=== PATIENT | male | born 1940 | race Caucasian/White ===

== ENCOUNTER 2023-10-17 23:39 | Inpatient (IN) | payer OTHER, SELFPAY ==
[2023-10-17 20:37] VITALS: BMI 24.4
[2023-10-17 20:49] LABS: % Basophils 0.5 % (0-2); % Eosinophils 1.8 % (0-6); % Immature Granulocytes 0.3 % (0-0.5); % Lymphocytes 36.1 % (20.5-51.1); % Monocytes 10.6 % (1.7-9.3); % Neutrophils 50.7 % (42.2-75.2); Absolute Eosinophils 0.1 10^3/uL (0-0.7); Absolute Lymphocytes 2.7 10^3/uL (1.2-3.4); Absolute Monocytes 0.8 10^3/uL (0.1-0.6); Absolute Neutrophils 3.8 10^3/uL (1.4-6.5); Hematocrit 48.5 % (39.0-52.0); Hemoglobin 15.9 g/dL (13.0-18.0); Mean Corp Hgb Conc. 32.8 g/dL (33.0-37.0); Mean Corpuscular Hgb 29.2 pg (27.0-31.0); Mean Corpuscular Volume 89.2 fL (80.0-94.0); Mean Platelet Volume 9.3 fL (7.4-10.4); Nucleated Red Blood Cells % 0 % (-); Platelet Count 140 10^3/uL (130-400); Red Blood Cell Count 5.44 10^6/uL (4.70-6.10); Red Cell Dist. Width 13.8 % (11.5-14.5); White Blood Cell Count 7.4 10^3/uL (4.8-10.8)
[2023-10-17 21:06] VITALS: BP 86/42
[2023-10-17 21:15] LABS: ALT (SGPT) 21 U/L (0-50); AST (SGOT) 31 U/L (17-59); Albumin 4.3 g/dl (3.5-5.0); Alkaline Phosphatase 79 U/L (38-126); Blood Urea Nitrogen 30 mg/dl (9-20); Calcium 9.1 mg/dl (8.4-10.2); Carbon Dioxide 31 mmol/L (22-30); Chloride 100 mmol/L (98-107); Estimated Creatinine Clearance 50 ml/min; Glucose 117 mg/dl (70-99); Potassium 3.9 mmol/L (3.5-5.1); Sodium 134 mmol/L (135-145); Total Bilirubin 0.7 mg/dl (0.2-1.3); Total Protein 7.1 g/dl (6.3-8.2); eGFR 55.53
[2023-10-17 21:25] LABS: Troponin I 0.014 ng/ml
[2023-10-17] MEDS: CARDIZEM 2.5 MG IV (21:39)
[2023-10-17] MEDS: NSS 1000 IV (21:41)
[2023-10-17] MEDS: CARDIZEM 125 IV (21:41)
[2023-10-17 22:34] VITALS: BP 142/119
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
[2023-10-17 22:54] VITALS: BP 96/40
[2023-10-17 23:00] VITALS: BP 84/63
[2023-10-17 23:44] VITALS: BP 84/69
[2023-10-18] VITALS (39 sets, daily range): BP systolic 74–114; BP diastolic 50–72; PULSE 67–69; BMI 24.4; BMI 24.7
[2023-10-18] MEDS: CORDARONE 103 MG IV (00:51)
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
[2023-10-18] MEDS: CORDARONE 518 MG IV (01:12)
[2023-10-18] MEDS: NSS 500 IV (01:21)
--- NOTE | 2023-10-18 02:00 | PTCARENOTE ---
Received patient from ED. Patient able to transfer from stretcher to bed. Patient awake, alert and oriented. No complaints of pain. Patient on amio gtt and IVF's at this time. Patient hooked up to monitor, vital signs obtained. Patients HR in 80's,
vpacing. Underlying rhythm looks like Afib but now controlled. BP stable 80/50s. No complaints of lightheadedness or dizziness. No pain. Patient on RA, sats 98%, lungs clear. + bowel sounds, urinal at bedside. Went over plan of care. No questions at
this time. oriented to room, call wagner within reach, maintained safety.
[2023-10-18] MEDS: KCL 20 MEQ PO (02:32)
[2023-10-18 02:55] LABS: Magnesium 2.2 mg/dl (1.6-2.3)
[2023-10-18 04:30] LABS: % Basophils 0.6 % (0-2); % Eosinophils 2.2 % (0-6); % Lymphocytes 30.3 % (20.5-51.1); % Neutrophils 55.9 % (42.2-75.2); Absolute Eosinophils 0.1 10^3/uL (0-0.7); Absolute Lymphocytes 1.6 10^3/uL (1.2-3.4); Absolute Monocytes 0.6 10^3/uL (0.1-0.6); Hematocrit 42.3 % (39.0-52.0); Hemoglobin 13.9 g/dL (13.0-18.0); Mean Corp Hgb Conc. 32.9 g/dL (33.0-37.0); Mean Corpuscular Hgb 29.9 pg (27.0-31.0); Mean Platelet Volume 9.6 fL (7.4-10.4); Nucleated Red Blood Cells % 0 % (-); Platelet Count 117 10^3/uL (130-400); Red Blood Cell Count 4.65 10^6/uL (4.70-6.10); Red Cell Dist. Width 13.8 % (11.5-14.5); White Blood Cell Count 5.4 10^3/uL (4.8-10.8)
[2023-10-18 04:40] LABS: INR 1.18; PT 15.3 Sec (11.4-14.6)
[2023-10-18 04:41] LABS: APTT 36.8 Sec (23.4-35.0)
[2023-10-18 05:12] LABS: ALT (SGPT) 17 U/L (0-50); AST (SGOT) 23 U/L (17-59); Albumin 3.1 g/dl (3.5-5.0); Alkaline Phosphatase 60 U/L (38-126); Blood Urea Nitrogen 26 mg/dl (9-20); Calcium 8.3 mg/dl (8.4-10.2); Carbon Dioxide 24 mmol/L (22-30); Chloride 105 mmol/L (98-107); Estimated Creatinine Clearance 65 ml/min; Glucose 116 mg/dl (70-99); Magnesium 2.1 mg/dl (1.6-2.3); Sodium 137 mmol/L (135-145); Total Bilirubin 1.2 mg/dl (0.2-1.3); Total Protein 5.4 g/dl (6.3-8.2); eGFR > 60.00
[2023-10-18 05:26] LABS: TSH Reflex To Free T4 2.05 uIU/ml (0.47-4.68)
--- NOTE | 2023-10-18 07:17 | PTCARENOTE ---
pt received from change of shift, report received from outgoing RN. Pt in bed resting, Vpaced on the monitor, soft BP 90/71, on amio gtt 0.5mcg/hr, aaox4, bedrest, echo this am, NPO, pending reevaluation from Cardiology.
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
[2023-10-18] MEDS: ZOLOFT 50 MG PO (07:58)
[2023-10-18] MEDS: ELIQUIS 5 MG PO ×2 (07:58→20:06)
[2023-10-18] MEDS: PROTONIX 40 MG PO (07:59)
--- NOTE | 2023-10-18 08:22 | CON.CAR ---
Addendum entered and electronically signed by Marvel Milton MD 10/18/23 10:09:
I saw and examined the patient.
The FASHION BUYER's note was reviewed and I agree with the note.
Comment: �82 yo male with paroxysmal Afib on Eliquis, CAD ([place] s/p PCI mid-distal LAD and D1) 12/2019, ICM 15-20%, Medtronic BiV ICD, HTN, and HLD, who presents with sudden onset palpitations at 1 pm yesterday. He felt 'off' and had hypotensive so
came to the ED. No cp, Shortness of breath, or change in weight. In the past, he was uncertain that cardioversion was worth it. However, he remains persistently hypotensive. Amiodarone infusion was started. On physical exam he is alert and
well-appearing in no apparent distress despite low systolic blood pressure, however maps are greater than 65. He has an irregularly irregular rate and rhythm. No murmur rubs or gallops are appreciated. Lungs were clear to auscultation
bilaterally. No lower extremity edema. Telemetry shows atrial fibrillation as the underlying rhythm with a V paced rate. He did not receive a dose of Eliquis yesterday evening. We will confirm onset with device interrogation. Plan will then be
for cardioversion. I would like him to complete the 24-hour hour IV amiodarone loading with reinitiation of therapy. Of note he was on this years ago but stopped with Dr. Crain. No known side effect at that time. Will add on thyroid function
testing and LFTs if not already done. He does not appear to be in decompensated heart failure. Hopefully will remain on his current medications. Plan discussed with Dr. Young. Plan discussed with Dr. Last who will perform cardioversion.
Original Note:
Consultation
Consultation Request
Date/Time Consultation Requested: 10/17/23 11:57p
Date/Time Consultation Performed: 10/18/23 8a
Requesting Provider: DEMETRIO Wilkerson
Performing Provider: DEMETRIO Craig for Dr. Milton
Reason for Consultation: rapid Afib
Medical History
-
Chief Complaint: palpitations
History of Present Illness:
Mr. Reagan is an 82 yo male with paroxysmal Afib on Eliquis, CAD (MA s/p PCI mid-distal LAD and D1) 12/2019, ICM 15-20%, Medtronic BiV ICD, HTN, and HLD, who presents from home with c/o palpitations that began about 1pm. He checked his BP an hour
after palpitations began, BP was 70/43, so he came to the ER. Given IV Diltiazem in the ER, had hypotension and it was stopped. He is admitted to the hospitalist service and we are consulted for rapid Afib management with hypotension. He is
currently on IV Amiodarone with rate controlled Afib, he still c/o feeling mild palpitations. He is also V paced on tele at times. His last Afib episodes were in August 2023, according to his device interrogation 09/25/23. There were 3 Afib
episodes, max lasting 23 hours on 08/27/23. Total Afib burden 3%, otherwise no ICD discharges and stable Optivol fluid index. ICM is stable on GDMT with baseline low/normal BP, typically SBP in the mid 90s. He reports stable weight of 176 lbs at
home w/o heart failure symptoms. He also reports compliance with Eliquis without missed doses, though states he did not receive Eliquis last night as an inpatient.
Past Medical History
Past Medical History: Other (as above)
Past Surgical History: Cardiac (Medtronic BiV ICD 04/2020)
Social History
Tobacco: Non-Smoker
Alcohol: None
Personal:
Living: With Family
Employment: Retired
Family History
Family History: Early CAD (father had MA age 40 then bypass in his 60s)
Allergies / Home Medications
Allergy/AdvReac Type Severity Reaction Status Date / Time
lisinopril AdvReac cough Verified 10/17/23 20:24
Medication Instructions Recorded Confirmed Type
lorazepam 0.5 mg tablet 0.5 mg PO BIDPRN PRN anxiety 01/04/20 10/17/23 History
rosuvastatin 20 mg tablet 20 mg PO HS 01/04/20 10/17/23 History
furosemide 40 mg tablet 40 mg PO DAILY #90 tabs 01/07/20 10/17/23 Rx
nitroglycerin 0.4 mg sublingual 0.4 mg sublingual [id number] PRN 01/07/20 10/17/23 Rx
tablet chest pain #25 tabs
pantoprazole 40 mg tablet,delayed 40 mg PO DAILY #90 tabs 01/07/20 10/17/23 Rx
release
apixaban 5 mg tablet (Eliquis) 5 mg PO BID 10/17/23 10/17/23 History
empagliflozin 10 mg tablet 10 mg PO DAILY 10/17/23 10/17/23 History
(Jardiance)
metoprolol succinate 25 mg 25 mg PO DAILY 10/17/23 10/17/23 History
tablet,extended release 24 hr
sacubitril 97 mg-valsartan 103 mg 1 tab PO BID 10/17/23 10/17/23 History
tablet (Entresto)
sertraline 50 mg tablet 50 mg PO DAILY 10/17/23 10/17/23 History
tramadol 37.5 mg-acetaminophen 325 1 tab PO BID PRN moderate 10/17/23 10/17/23 History
mg tablet pain/back pain
Review of Systems
-
History Source: Patient
All other systems: Negative unless noted
Physical Exam
Vital Signs
Temp Pulse Resp BP Pulse Ox
97.4 F 87 25 82/59 96
10/18/23 07:47 10/18/23 08:00 10/18/23 08:00 10/18/23 08:00 10/18/23 08:00
Lab Results
10/18/23 04:18
10/18/23 04:18
Troponin I 0.014 ng/ml 10/17/23 20:41
Physical Exam
General: Well Developed, Well Nourished and No Apparent Distress
HEENT: Normocephalic
Respiratory: Clear and Non Labored Respirations
Cardiac: S1/S2 and Irregular Rhythm
Breast: Deferred by me
GI: Soft, Non Tender, Non Distended and Normal Bowel Sounds
Rectal: Deferred by Provider
Genito-urinary: No Costovertebral Tender
Musculoskeletal: No Clubbing, No Cyanosis and No Edema
Skin: Warm and Dry
Neuro: AO x 3
Psych: Calm
Impression / Plan
-
Afib - paroxysmal though RVR on arrival to ER with hypotension.
- symptomatic with palpitations.
- rate controlled now on IV Amiodarone, plan to transition to PO tomorrow.
- on Eliquis, didn't have Eliquis last night but he states onset of Afib was 1pm yesterday.
- will interrogate his device for exact time on onset of Afib.
- if Afib began within 24 hours, then will cardiovert today and no SAVANNA needed.
- he is agreeable to cardioversion and Amiodarone plan.
- continue Eliquis.
Hypotension - stable.
- low/normal BP at baseline with SBP in the mid 90s.
- denies any symptoms.
- holding outpatient meds.
CAD - MA 12/2019 s/p PCI mid-distal LAD and D1.
- denies angina.
- continue medical therapy.
ICM/HFrEF - chronic, EF 15-20%.
- compensated on exam.
- as outpatient on max tolerated GDMT, currently on hold due to hypotension.
BiV ICD - Medtronic.
- stable with normal function, no discharges.
- will interrogate device to be sure timing of onset of Afib.
HLD - stable on Crestor.
- LDL 62.
Data Reviewed
-
EKG: Tracing Personally Visualized and interpreted (Afib with RVR 128 bpm, with frequent V paced complexes)
Medical Tests (Nuc Med, Echo etc): Report Reviewed by me (Echo 12/22/22: EF 15-20%, no valve dx)
Labs: Labs Reviewed by me
Old Records: Reviewed
--- NOTE | 2023-10-18 11:52 | W.PN.UPDATE ---
Update Note
Progress Note Update
200J and AF converted to NSR
--- NOTE | 2023-10-18 13:31 | CM ---
CM following re: discharge planning.
Reviewed pt's chart, met with pt and pt's spouse at bedside.
Pt is an 82 year old male, admitted with primary dx of unstable AFib.
Pt reports he lives with spouse in a 2SH, 1 step to enter, has 4 supportive daughters and 2 are nurses. 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 No DME, VN or SNF history. 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
PCP: Forrest Grover
Pharmacy: [facility].
D/C plan: home with most likely resumptions of outpatient cardiac rehab at .
CM will follow with discharge plan updates as hospitalization progresses
--- NOTE | 2023-10-18 13:39 | PTCARENOTE ---
Cardiology @ bedside, Anes @ bedside, Pt getting cardioversion at bedside, Zoll connected to patient, timeout called, Pt was sync cardioverted @ 200J x1 and converted to VPaced @ 60-70's. Pt slowly woke up from Anes and following commands.
--- NOTE | 2023-10-18 14:35 | CARDSERVLU ---
Echocardiogram with Lumason completed after protocol screening completed. Allergies verified.
Patent IV site: _L AC____
IV site flushed with 0.9% NaCl pre and post administration.
Diluted bolus method utilized to enhance visualization of ventricular cazares.
Total volume given: __1.5__ mL
Patient tolerated all procedures well without complications.
--- NOTE | 2023-10-18 15:15 | PTOTSP ---
pt able to complete simple ADLs, functional transfers, ambulation with supervision to no assistance. no acute OT needs identified at this time, will sign off.
--- NOTE | 2023-10-18 17:35 | W.PN.HOSP.TC ---
Today's Communication/Plan
-
.
Assessment / Plan
Assessment / Plan
ASSESSMENT:
Paroxysmal A-fib with rapid ventricular response
Hypotension/essential hypertension
Ischemic cardiomyopathy/chronic heart failure with reduced ejection fraction 15 to 20%
ASCVD
PLAN:
# Paroxysmal A-fib with rapid ventricular response
Was started on IV diltiazem in the ER but did not tolerate due to hypotension
IV diltiazem stopped and started on 24-hour IV amiodarone loading
Synchronized cardioversion attempted today with 200 J, converted to normal sinus rhythm.
Continue IV amiodarone
Continue telemetry
Continue Eliquis
# Hypotension
BP 90/67
Hold metoprolol, diltiazem
#Chronic heart failure with reduced ejection fraction
Echo today EF at 20 to 25%
As outpatient on GDMT, currently on hold due to hypotension
Monitor input and output, daily weights
# ASCVD
Stents x 20 December 2019
Continue medical therapy
# DVT prophylaxis
Continue Eliquis
Anticipated Discharge: 24 - 48 hours
Subjective/Interval History
-
Date of Service: October 18, 2023
Objective Data
-
Vital Signs:
Vital Signs
Temp Pulse Resp BP Pulse Ox
97.6 F 95 14 90/67 96
10/18/23 15:41 10/18/23 09:15 10/18/23 09:15 10/18/23 09:00 10/18/23 09:15
I&O
10/17/23 10/18/23 10/19/23
06:59 06:59 06:59
Output Total 350 / 350
Balance -350 / -350
Physical Exam
-
General: No Apparent Distress
HEENT: Normocephalic, Atraumatic and Moist Mucous Membranes
Skin: Warm and Dry
Neuro: Awake, Alert, Oriented and AO x 3
Psych: Calm
--- NOTE | 2023-10-18 18:03 | W.PN.HOSP.TC ---
Addendum entered and electronically signed by Chetan Young MD 10/18/23 18:07:
Patient seen and examined
Discussed with resident
Discussed with cardiology,
Impression
Presentation with symptomatic A-fib with rapid ventricular response
Hypotension, acute on chronic.
Conditions prior to admission:
Paroxysmal atrial fibrillation
Anticoagulation with Eliquis.
CAD with GA 2020 status post PCI to mid-distal LAD.
Chronic CHF reduced EF
Ischemic cardiomyopathy with LVEF of 15 to 20%
Chronic hypotension.
Status post BiV AICD
Dyslipidemia.
Plan:
Paroxysmal A-fib with RVR.
Symptomatic on presentation.
Acute on chronic hypotension
Initiated on Cardizem drip with worsening hypotension.
Transition to amiodarone.
Successful DC cardioversion today to normal sinus rhythm
Continue Eliquis
Acute on chronic hypotension.
Baseline SBP in 90s.
Hold next dose of Lasix, Entresto, metoprolol reassess regimen post cardioversion.
Chronic CHF reduced EF/ischemic cardiomyopathy with LVEF of 15 to 20%.
On GDMT prior to presentation. Hold for now reassessing hemodynamics with A-fib rate/rhythm control
Original Note:
Today's Communication/Plan
-
Cardioversion today
Assessment / Plan
Assessment / Plan
ASSESSMENT:
Paroxysmal A-fib with rapid ventricular response
Hypotension/essential hypertension
Ischemic cardiomyopathy/chronic heart failure with reduced ejection fraction 15 to 20%
ASCVD
PLAN:
# Paroxysmal A-fib with rapid ventricular response
Was started on IV diltiazem in the ER but did not tolerate due to hypotension
IV diltiazem stopped and started on 24-hour IV amiodarone loading
Synchronized cardioversion attempted today with 200 J, converted to normal sinus rhythm.
Continue IV amiodarone
Continue telemetry
Continue Eliquis
# Hypotension
BP 90/67
Hold metoprolol, diltiazem
Anticipated Discharge: 24 - 48 hours
Subjective/Interval History
-
Date of Service: October 18, 2023
Objective Data
-
Vital Signs:
Vital Signs
Temp Pulse Resp BP Pulse Ox
97.6 F 95 14 90/67 96
10/18/23 15:41 10/18/23 09:15 10/18/23 09:15 10/18/23 09:00 10/18/23 09:15
I&O
10/17/23 10/18/23 10/19/23
06:59 06:59 06:59
Output Total 350 / 350
Balance -350 / -350
Physical Exam
-
General: Well Developed and No Apparent Distress
HEENT: Normocephalic, Atraumatic and Moist Mucous Membranes
Respiratory: Clear to Auscultation
Cardiac: Regular Rhythm and S1/S2; Negative Murmur, Rub or Gallop
GI: Soft, Nontender, Nondistended and Normal Bowel Sounds; Negative Organomegaly
Rectal: Deferred by Provider
Musculoskeletal: No Clubbing, No Cyanosis and No Edema
Skin: Negative Rash
Neuro: Nonfocal/Grossly Intact
[2023-10-18] MEDS: PACERONE 400 MG PO (20:06)
--- NOTE | 2023-10-18 20:26 | PTCARENOTE ---
Rec'd care of patient at 1900. Patient alert and oriented. Resting comfortably in bed with no complaints. Amiodarone gtt turned off at 1999 with administration of PO dose. Vitals stable. Vpaced/NSR on tele monitor. Rate in the 60-70's. Slight
crackles auscultated in b/l bases. POX 97% on RA. Call wagner within reach.
[2023-10-18] MEDS: CRESTOR 20 MG PO (21:40)
[2023-10-19] VITALS (10 sets, daily range): BP systolic 94–114; BP diastolic 54–71; BMI 24.8
--- NOTE | 2023-10-19 00:13 | PTCARENOTE ---
No changes. VSS. Pt remains in NSR/SB. Rate in the 50-60's.
--- NOTE | 2023-10-19 03:38 | PTCARENOTE ---
No changes. Vitals stable. SB with rate in the 50-60's. AM labs sent.
[2023-10-19 04:13] LABS: % Basophils 0.7 % (0-2); % Eosinophils 2.4 % (0-6); % Immature Granulocytes 0.2 % (0-0.5); % Lymphocytes 32.7 % (20.5-51.1); % Monocytes 10.4 % (1.7-9.3); % Neutrophils 53.6 % (42.2-75.2); Absolute Eosinophils 0.1 10^3/uL (0-0.7); Absolute Lymphocytes 1.5 10^3/uL (1.2-3.4); Absolute Monocytes 0.5 10^3/uL (0.1-0.6); Absolute Neutrophils 2.4 10^3/uL (1.4-6.5); Hemoglobin 13.5 g/dL (13.0-18.0); Mean Corp Hgb Conc. 33.8 g/dL (33.0-37.0); Mean Corpuscular Hgb 29.8 pg (27.0-31.0); Mean Corpuscular Volume 88.3 fL (80.0-94.0); Mean Platelet Volume 9.2 fL (7.4-10.4); Nucleated Red Blood Cells % 0 % (-); Platelet Count 109 10^3/uL (130-400); Red Blood Cell Count 4.53 10^6/uL (4.70-6.10); Red Cell Dist. Width 13.9 % (11.5-14.5); White Blood Cell Count 4.5 10^3/uL (4.8-10.8)
[2023-10-19 04:23] LABS: ALT (SGPT) 17 U/L (0-50); AST (SGOT) 24 U/L (17-59); Albumin 3.1 g/dl (3.5-5.0); Alkaline Phosphatase 54 U/L (38-126); Blood Urea Nitrogen 25 mg/dl (9-20); Calcium 8.9 mg/dl (8.4-10.2); Carbon Dioxide 23 mmol/L (22-30); Chloride 105 mmol/L (98-107); Estimated Creatinine Clearance 72 ml/min; Glucose 117 mg/dl (70-99); Potassium 4.1 mmol/L (3.5-5.1); Sodium 134 mmol/L (135-145); Total Bilirubin 0.7 mg/dl (0.2-1.3); Total Protein 5.5 g/dl (6.3-8.2); eGFR > 60.00
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
[2023-10-19] MEDS: PROTONIX 40 MG PO (08:15)
[2023-10-19] MEDS: ELIQUIS 5 MG PO (08:15)
[2023-10-19] MEDS: ZOLOFT 50 MG PO (08:15)
[2023-10-19] MEDS: PACERONE 400 MG PO (08:15)
--- NOTE | 2023-10-19 08:15 | PTCARENOTE ---
Received pt sitting up in bed. He is well versed on his heart failure after informing him on the purpose of his medication combination for heart failure. He was able to verbalize that he weighs himself every day and follows a low salt diet. He
stated he is active at home and goes to physical therapy. Right AC#18g protective catheter and left FA #20g protective catheter both flushed and patent. Good peripheral pulses. No edema. Lungs posteriorly with fine bibasilar crackles. +BSx4. Good
appetite. Voiding clear yellow urine. He is ambulatory in the room. Placed on tele pack for mobility. Safe environment maintained. Will continue to monitor.
--- NOTE | 2023-10-19 08:29 | W.PN.CD ---
Today's Communication / Plan
-
metoprolol and jardiance now
lasix tomorrow
entresto tonight
continue po amio load with 400mg po bid x12 days then 200mg po bid x2 weeks then 200mg daily
will arrange follow up.
Impression / Plan
-
Afib - paroxysmal though RVR on arrival to ER with hypotension.
- symptomatic with palpitations.
s/p DCCV 10/18/23
-now with brief runs of atach
-continue po amio load with 400mg po bid x12 days then 200mg po bid x2 weeks then 200mg daily
- continue Eliquis.
Hypotension - improved
-will add back bb now and hold lasix/Entresto
CAD - [place] 12/2019 s/p PCI mid-distal LAD and D1.
- denies angina.
- continue medical therapy.
ICM/HFrEF - chronic, EF 15-20%.
-echo unchanged
- compensated on exam.
- as outpatient on max tolerated GDMT
-resume bb/jardiance now
-resume lasix tomorrow and entresto tonight
BiV ICD - Medtronic.
- stable with normal function, no discharges.
HLD - stable on Crestor.
- LDL 62.
Subjective;
-feels great wants to go home
Data Reviewed:
TTE 10/18/23:
�CONCLUSIONS
�Severely reduced left ventricular systolic function. .Left ventricular ejection
�fraction is <20-25%.
�Akinesis of the apex, anterior, apical inferior, mid and apical septum, and
�hypokinetic anterolateral (Large LAD wall motion abnormality).
�Normal right ventricular size and function.Pacer wire seen
�Mild mitral regurgitation.
�Compared to prior studies of 12/22/22, and 12/17/21, and 4/1/21.� There is no
�significant change
�
Physical Exam
Vital Signs/Labs
Vital Signs
Temp Pulse Resp BP Pulse Ox
97.4 F 54 15 101/61 95
10/19/23 07:30 10/19/23 06:00 10/19/23 06:00 10/19/23 06:00 10/19/23 06:00
10/18/23 10/19/23 10/20/23
06:59 06:59 06:59
Actual Weight 82.4 kg 82.9 kg
10/19/23 03:35
10/19/23 03:35
PT 15.3 Sec (11.4-14.6) H 10/18/23 04:18
INR 1.18 10/18/23 04:18
APTT 36.8 Sec (23.4-35.0) H 10/18/23 04:18
Magnesium 2.1 mg/dl (1.6-2.3) 10/18/23 04:18
LAB Results
10/17/23
20:41
Troponin I 0.014
Physical Exam
Constitutional: No acute distress
Cardiovascular: Rhythm & rate is regular, Pedal edema is absent, JVD pressure is normal, Systolic murmur absent and Diastolic murmur absent
Respiratory: Respiratory effort normal, Lungs clear to auscul., Wheeze Absent, Crackles Absent and Rhonchi Absent
Neuro/Psych: AO x 3
Data Reviewed
-
Date of Service: October 19, 2023
EKG: Other (nsr with brief psvt)
Medical Tests (PFT, Pathology etc): Discussed with Physician (kisha angulo for discharge) and Discussed with Nurse (Tayla at the bedside give bb now)
[2023-10-19] MEDS: JARDIANCE 10 MG PO (09:13)
[2023-10-19] MEDS: TOPROL XL 25 MG PO (09:13)
--- NOTE | 2023-10-19 09:15 | W.DS.TRANS ---
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
-
Discharge Instructions:
Sleep Apnea Risk Low
Discharge Diagnosis/Procedures Atrial fibrillation with RVR
Diet 2 Gram Sodium
Instructions:
Stand-Alone Forms:
Changes to Home Medications: Yes
Discharge Medications:
DC Medications w/original date entered in [employer]
lorazepam 0.5 mg tablet 0.5 mg PO BIDPRN PRN anxiety 01/04/20
rosuvastatin 20 mg tablet 20 mg PO HS High Cholesterol 01/04/20
furosemide 40 mg tablet 40 mg PO DAILY #90 tabs 01/07/20
nitroglycerin 0.4 mg sublingual tablet 0.4 mg sublingual [id number] PRN chest pain #25 tabs 01/07/20
pantoprazole 40 mg tablet,delayed release 40 mg PO DAILY #90 tabs 01/07/20
apixaban 5 mg tablet (Eliquis) 5 mg PO BID Blood Clot Prevention/Tx 10/17/23
empagliflozin 10 mg tablet (Jardiance) 10 mg PO DAILY Heart Disease/Condition 10/17/23
metoprolol succinate 25 mg tablet,extended release 24 hr 25 mg PO DAILY Heart Disease/Condition 10/17/23
sacubitril 97 mg-valsartan 103 mg tablet (Entresto) 1 tab PO BID Heart Disease/Condition 10/17/23
sertraline 50 mg tablet 50 mg PO DAILY Mental Health/Anxiety 10/17/23
tramadol 37.5 mg-acetaminophen 325 mg tablet 1 tab PO BID PRN moderate pain/back pain 10/17/23
amiodarone 200 mg tablet (Pacerone) 400 mg PO BID #90 tabs 10/19/23
Home Medication Changes
Amiodarone started with load
Pending Results: No
--- NOTE | 2023-10-19 10:15 | PTCARENOTE ---
Reviewed discharge instructions and removed his right AC#18g protective catheter. Awaiting RX for physical therapy.
--- NOTE | 2023-10-19 10:39 | CM ---
CM following re: discharge planning.
Reviewed pt's chart, met with pt.
Discharge order noted. Pt is aware, expressed his agreement with discharge and he stated his spouse is coming to transport home.
PT and OT evaluations noted - outpatient PT/OT recommended. Pt is aware and his stated he will resume outpatient PT/OT ant .
Please provide a script to the pt for outpatient PT, OT.
D/C plan: home with outpatient PT, OT at . Family to transport.
No other discharge needs identified.
== END 2023-10-19 11:31 | disposition home or self-care (01) | DRG 309 ==
LOC: ICU 23:39
PROVIDERS: Clinical Nurse Specialist Family Health; Emergency Medicine; Internal Medicine Cardiovascular Disease; Nurse Practitioner Primary Care; ADMITTING PHYSICIAN Hospitalist; ATTENDING PHYSICIAN Internal Medicine; CONSULT PHYSICIAN Internal Medicine Cardiovascular Disease; CONSULT PHYSICIAN Internal Medicine Pulmonary Disease; EMERGENCY PHYSICIAN Emergency Medicine; FAMILY PHYSICIAN Family Medicine
PROC: 5A2204Z Restoration of Cardiac Rhythm, Single (ICD-10-PCS; 2023-10-18)
DX: I48.0 Paroxysmal atrial fibrillation (principal); I50.22 Chronic systolic (congestive) heart failure; I25.10 Atherosclerotic heart disease of native coronary artery without angina pectoris; I25.5 Ischemic cardiomyopathy; I11.0 Hypertensive heart disease with heart failure; I25.2 Old myocardial infarction; Z95.5 Presence of coronary angioplasty implant and graft; Z95.810 Presence of automatic (implantable) cardiac defibrillator; Z79.01 Long term (current) use of anticoagulants; E78.00 Pure hypercholesterolemia, unspecified; F41.9 Anxiety disorder, unspecified; K21.9 Gastro-esophageal reflux disease without esophagitis; I95.89 Other hypotension
CPT/HCPCS: 71045; 80053; 83735; 84443; 84484; 85025; 85610; 85730; 92960; 93005; 93288; 93306; 96361; 96365; 96375; 97163; 97165; 99291; Q9950

== ENCOUNTER → 2023-11-21 08:08 | Outpatient (REF) | payer OTHER, SELFPAY ==
[2023-11-21 09:44] LABS: ALT (SGPT) 30 U/L (0-50); AST (SGOT) 31 U/L (17-59); Albumin 4.4 g/dl (3.5-5.0); Alkaline Phosphatase 74 U/L (38-126); Blood Urea Nitrogen 34 mg/dl (9-20); Calcium 9.5 mg/dl (8.4-10.2); Carbon Dioxide 32 mmol/L (22-30); Chloride 99 mmol/L (98-107); Glucose 122 mg/dl (70-99); Potassium 4.3 mmol/L (3.5-5.1); Sodium 137 mmol/L (135-145); Total Bilirubin 0.9 mg/dl (0.2-1.3); Total Protein 7.2 g/dl (6.3-8.2); eGFR 55.19
[2023-11-21 10:15] LABS: TSH Reflex To Free T4 2.69 uIU/ml (0.47-4.68)
== END ==
LOC: REG 08:08
PROVIDERS: ATTENDING PHYSICIAN Nurse Practitioner; FAMILY PHYSICIAN Family Medicine
DX: I48.0 Paroxysmal atrial fibrillation (principal)
CPT/HCPCS: 36415; 80053; 84443

== ENCOUNTER → 2023-12-05 08:36 | Outpatient (REF) | payer OTHER, SELFPAY | LOC: RSP 08:36 | PROVIDERS: ATTENDING PHYSICIAN Nurse Practitioner; FAMILY PHYSICIAN Family Medicine | DX: I48.0 Paroxysmal atrial fibrillation (principal) | CPT/HCPCS: 94727; 94729; 88738; 94010 ==

== ENCOUNTER → 2024-01-29 10:56 | Outpatient (REF) | payer OTHER, SELFPAY | LOC: REG 10:56 | PROVIDERS: ATTENDING PHYSICIAN Internal Medicine Cardiovascular Disease; FAMILY PHYSICIAN Family Medicine | DX: I48.0 Paroxysmal atrial fibrillation (principal) | CPT/HCPCS: 36415; 80151 ==

== ENCOUNTER → 2024-02-27 08:47 | Outpatient (REF) | payer OTHER, SELFPAY | LOC: REG 08:47 | PROVIDERS: ATTENDING PHYSICIAN Internal Medicine Cardiovascular Disease; FAMILY PHYSICIAN Family Medicine | DX: I48.0 Paroxysmal atrial fibrillation (principal) | CPT/HCPCS: 36415; 80151 ==

== ENCOUNTER 2024-08-12 11:54 | Emergency (ER) | payer OTHER, SELFPAY ==
[2024-08-12 11:55] VITALS: BP 107/74
[2024-08-12 12:33] LABS: ALT (SGPT) 30 U/L (0-50); AST (SGOT) 34 U/L (17-59); Albumin 4.8 g/dl (3.5-5.0); Alkaline Phosphatase 65 U/L (38-126); Blood Urea Nitrogen 29 mg/dl (9-20); Calcium 9.6 mg/dl (8.4-10.2); Carbon Dioxide 28 mmol/L (22-30); Chloride 100 mmol/L (98-107); Glucose 103 mg/dl (70-99); Potassium 4.9 mmol/L (3.5-5.1); Sodium 138 mmol/L (135-145); Total Bilirubin 0.9 mg/dl (0.2-1.3); Total Protein 7.5 g/dl (6.3-8.2); eGFR > 60.00
[2024-08-12 12:44] LABS: % Basophils 0.5 % (0-2); % Eosinophils 1.6 % (0-6); % Immature Granulocytes 0.4 % (0-0.5); % Monocytes 8.4 % (1.7-9.3); % Neutrophils 66.1 % (42.2-75.2); Absolute Eosinophils 0.1 10^3/uL (0-0.7); Absolute Lymphocytes 1.3 10^3/uL (1.2-3.4); Absolute Monocytes 0.5 10^3/uL (0.1-0.6); Absolute Neutrophils 3.6 10^3/uL (1.4-6.5); Hematocrit 48.7 % (39.0-52.0); Hemoglobin 15.8 g/dL (13.0-18.0); Mean Corp Hgb Conc. 32.4 g/dL (33.0-37.0); Mean Corpuscular Hgb 30.2 pg (27.0-31.0); Mean Corpuscular Volume 92.9 fL (80.0-94.0); Mean Platelet Volume 9.5 fL (7.4-10.4); Nucleated Red Blood Cells % 0 % (-); Platelet Count 141 10^3/uL (130-400); Red Blood Cell Count 5.24 10^6/uL (4.70-6.10); Red Cell Dist. Width 14.1 % (11.5-14.5); White Blood Cell Count 5.5 10^3/uL (4.8-10.8)
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
[2024-08-12 13:24] VITALS: BP 106/67
[2024-08-12 13:41] VITALS: BMI 26.1
[2024-08-12 14:50] LABS: HDL Cholesterol 83 mg/dl; LDL Cholesterol, Calculated 69 mg/dl; Total Cholesterol 182 mg/dl (50-199); Triglyceride 154 mg/dl (10-149); Very Low Density Lipoprotein 30 mg/dl (0-30)
[2024-08-12 15:00] VITALS: BP 90/69
[2024-08-12 15:10] VITALS: BP 101/66
[2024-08-12 16:00] VITALS: BP 93/70
[2024-08-12 18:58] VITALS: BP 102/72
== END 2024-08-12 18:59 | disposition home or self-care (01) ==
LOC: EMR 11:54
PROVIDERS: Emergency Medicine; EMERGENCY PHYSICIAN Student in an Organized Health Care Education/Training Program; FAMILY PHYSICIAN Family Medicine
DX: H53.122 Transient visual loss, left eye (principal); I48.91 Unspecified atrial fibrillation; I50.9 Heart failure, unspecified; E78.00 Pure hypercholesterolemia, unspecified; Z79.01 Long term (current) use of anticoagulants
CPT/HCPCS: 99285; 70450; 70496; 70498; 80053; 80061; 85025; Q9967

== ENCOUNTER → 2024-08-13 13:04 | Outpatient (REF) | payer OTHER, SELFPAY ==
[2024-08-13 14:30] LABS: C-Reactive Protein < 5.00 mg/L (0.0-10.00)
[2024-08-13 14:55] LABS: Erythrocyte Sed Rate 8 mm/hour (0-20)
== END ==
LOC: REG 13:04
PROVIDERS: ATTENDING PHYSICIAN Ophthalmology; FAMILY PHYSICIAN Family Medicine
DX: G45.3 Amaurosis fugax (principal)
CPT/HCPCS: 36415; 85652; 86140

== ENCOUNTER → 2024-11-26 12:40 | Outpatient (REF) | payer OTHER, SELFPAY | LOC: RCS 12:40 | PROVIDERS: ATTENDING PHYSICIAN Internal Medicine Cardiovascular Disease; FAMILY PHYSICIAN Family Medicine | DX: I25.5 Ischemic cardiomyopathy (principal) | CPT/HCPCS: 93306; Q9950 ==

== ENCOUNTER → 2025-04-01 08:14 | Outpatient (REF) | payer OTHER, SELFPAY ==
[2025-04-01 09:45] LABS: ALT (SGPT) 21 U/L (0-50); AST (SGOT) 25 U/L (17-59); Albumin 4.8 g/dl (3.5-5.0); Alkaline Phosphatase 64 U/L (38-126); Blood Urea Nitrogen 27 mg/dl (9-20); Calcium 9.6 mg/dl (8.4-10.2); Carbon Dioxide 27 mmol/L (22-30); Chloride 105 mmol/L (98-107); Glucose 122 mg/dl (70-99); HDL Cholesterol 78 mg/dl; LDL Cholesterol, Calculated 66 mg/dl; Potassium 4.9 mmol/L (3.5-5.1); Sodium 139 mmol/L (135-145); Total Protein 7.6 g/dl (6.3-8.2); Very Low Density Lipoprotein 27 mg/dl (0-30); eGFR > 60.00
[2025-04-01 09:53] LABS: Glycohemoglobin (HgbA1c) 6.0 % (4.0-5.6)
== END ==
LOC: REG 08:14
PROVIDERS: ATTENDING PHYSICIAN Family Medicine; OTHER PHYSICIAN Internal Medicine Cardiovascular Disease
DX: R73.01 Impaired fasting glucose (principal); E78.5 Hyperlipidemia, unspecified
CPT/HCPCS: 36415; 80053; 80061; 83036; 84443